=== PATIENT | female | born 1975 | race Caucasian/White ===

== ENCOUNTER 2017-03-08 13:05 | Emergency (ER) | payer SELFPAY ==
[~2017-03-08] VITALS: Ht 167.6 cm; Wt 90.1 kg
[2017-03-08 13:16] VITALS: BP 144/86
[2017-03-08] MEDS ORDERED: IBUPROFEN 200 MG TABLET PO ONE (14:00)
[2017-03-08] MEDS ORDERED: IBUPROFEN 200 MG TABLET ONE (14:03)
[2017-03-08] MEDS ORDERED: ONDANSETRON 2MG/ML, 2ML IVPush ONE (14:30)
[2017-03-08] MEDS ORDERED: KETOROLAC 30 MG/1 ML IVPush ONE (14:30)
[2017-03-08] MEDS ORDERED: SODIUM CHLORIDE FLUSH 10ML SYR IVF ONE (14:30)
[2017-03-08] MEDS ORDERED: SODIUM CHLORIDE 0.9% 1,000ML IVBOLUS ONE (14:30)
== END 2017-03-08 14:36 | disposition home or self-care (01) ==
LOC: ED 14:30
DX: S90.821A Blister (nonthermal), right foot, initial encounter (principal); S90.822A Blister (nonthermal), left foot, initial encounter; B35.3 Tinea pedis; F17.200 Nicotine dependence, unspecified, uncomplicated; Z59.0 Homelessness; Z88.5 Allergy status to narcotic agent; Z88.6 Allergy status to analgesic agent; Z88.1 Allergy status to other antibiotic agents; X58.XXXA Exposure to other specified factors, initial encounter; Y93.01 Activity, walking, marching and hiking; Y92.89 Other specified places as the place of occurrence of the external cause; Y99.8 Other external cause status
CPT/HCPCS: 99283